=== PATIENT | female | born 1945 | race Caucasian/White ===

== ENCOUNTER 2022-08-19 14:40 | Emergency (ER) | payer OTHER ==
[~2022-08-19] VITALS: Ht 162.6 cm; Wt 82.1 kg
[~2022-08-19 14:40] MED LIST: ATOR10TA68 PO; CIPR500T5 PO; LISI-652 PO; METF-1069 PO; METR500T PO
[2022-08-19 15:03] VITALS: BP_SYST 144
[2022-08-19] MEDS ORDERED: KETOROLAC TROMETHAMINE 60 MG/2 ML VIAL IM ONE (15:15)
[2022-08-19] MEDS ORDERED: guaiFENesin/DEXTROMETHORPHAN 10 ML UDC PO ONE (15:15)
[2022-08-19] MEDS ORDERED: BENZ100C92 PO (16:08)
[2022-08-19] MEDS ORDERED: NIRM1TAB PO (16:08)
[2022-08-19] MEDS ORDERED: IBUP-1969 PO (16:08)
[2022-08-19 16:20] VITALS: BP_SYST 135
== END 2022-08-19 16:48 | disposition home or self-care (01) ==
LOC: SED 14:40
DX: U07.1 COVID-19 (principal); R05.9 Cough, unspecified; R50.9 Fever, unspecified; R51.9 Headache, unspecified; E11.9 Type 2 diabetes mellitus without complications; I10 Essential (primary) hypertension; E78.5 Hyperlipidemia, unspecified; Z79.899 Other long term (current) drug therapy
CPT/HCPCS: 99284; 71045; 87426; 36415; 96372; 87804 ×2; J1885